=== PATIENT | male | born 1945 | race Caucasian/White ===

== ENCOUNTER 2024-05-03 14:48 | Inpatient (IN) | payer MEDICARE, OTHER, SELFPAY ==
[2024-05-03] VITALS (10 sets, daily range): BP systolic 114–147; BP diastolic 54–69; BMI 21.9; BMI 21.8
[2024-05-03 11:21] LABS: % Basophils 0.5 % (0-2); % Eosinophils 1.9 % (0-6); % Immature Granulocytes 0.5 % (0-0.5); % Lymphocytes 19.4 % (20.5-51.1); % Monocytes 7.7 % (1.7-9.3); Absolute Eosinophils 0.2 10^3/uL (0-0.7); Absolute Lymphocytes 1.7 10^3/uL (1.2-3.4); Absolute Monocytes 0.7 10^3/uL (0.1-0.6); Hematocrit 38.7 % (39.0-52.0); Hemoglobin 13.2 g/dL (13.0-18.0); Mean Corp Hgb Conc. 34.1 g/dL (33.0-37.0); Mean Corpuscular Hgb 29.7 pg (27.0-31.0); Mean Platelet Volume 10.5 fL (7.4-10.4); Nucleated Red Blood Cells % 0 % (-); Platelet Count 124 10^3/uL (130-400); Red Blood Cell Count 4.45 10^6/uL (4.70-6.10); Red Cell Dist. Width 13.9 % (11.5-14.5); White Blood Cell Count 8.6 10^3/uL (4.8-10.8)
--- NOTE | 2024-05-03 11:24 | ED.GENMED ---
History of Present Illness
General
Chief Complaint: Numbness
Time Seen by Provider: 05/03/24 10:49
History of Present Illness
History of Present Illness:
Started at 5 AM with numbness and weakness to the leg when he got up to go to the bathroom. Fine 11 PM when he went to bed. Shortly after developed pain in the leg. Symptoms are moderate in nature
Past History
Past History
ED Past Medical History: CAD, HTN, Hypercholesterolemia, NIDDM, HI (X 2) and Other (Parkinson's disease, Tremors)
ED Past Surgical History: Cardiac (CABG x 2, cardiac stent x 15, ) and Other (Stents both legs. Carotid bypass, Fem-pop bypass, )
Social History
Tobacco: Former smoker
Alcohol: None
Drug: None
Personal:
Living: with family
Employment: Retired
Family History
Family History: Other (Noncontributory)
Phy Exam
Physical Exam
Physical Exam:
GENERAL: Alert and oriented in no apparent distress
EYE: Orbits normal.
NECK: Supple
CARDIAC: Regular rate and rhythm without any obvious murmurs.
LUNGS: Clear breath sounds,normal
ABDOMEN: Soft, without focal tenderness or distention
NEUROLOGICAL: Alert and oriented , grossly non-focal
SKIN: Warm and dry, coolness to the left foot starting near the ankle.
MUSCULOSKELETAL: Cold cool left foot. No dorsalis pedis or posterior tibial pulses. Decreased sensation but able to wiggle the toes well and flex the foot. Decreased extension which is not new
PSYCH: Normal and appropriate interaction.
Course
Orders/Labs/Results
Orders:
Orders
05/03/24 10:58
IV Insert/Care/Rem.- Treatment PRN
05/03/24 11:05
PTT Urgent
Prothrombin Time Urgent
05/03/24 11:06
CT Abd Aorta Angio W/ Run Off Stat
Reason For Exam: cold left foot. include delayed/runoff
Basic Metabolic Panel Urgent
Complete Blood Count/With Diff Urgent
05/03/24 11:23
Heparin 4,000 units IV NOW STA
Nursing to Place Non Medication Order As Directed
Physician Order: PTT 6 hours after initial start of Heparin infusion
05/03/24 11:30
Heparin 03045 Units/250 ml 25,000 units in 250 ml IV PER PROTOCOL
Weight to be used for heparin protocol in kilograms (kg):: 69.2
Protocol:: Vascular Surgery
PTT Goal Range to be used:: PTT 73 to 111 seconds
Order type:: Initial
INITIAL Infusion Dose (UNITS/KG/hr) & then follow protocol:: 18 units/kg/hr
Infusion Dose in UNITS/hr & then follow protocol (UNITS/hr):: 1,200
INFUSION RATE in mL/hr & then follow protocol (mL/hr):: 12
PTT less than or equal to 64 seconds:: Notify Ordering Provider. obtain orders for rate increase &
possible bolus
PTT 64.1 to 72.9 seconds:: Increase rate by 100 units/hr (+ 1 mL/hr)
PTT 73 to 111 seconds:: Target Range. No change in rate.
PTT 111.1 to 130.9 seconds:: Decrease rate by 100 units/hr (- 1 mL/hr)
PTT 131 to 199.9 seconds:: HOLD for 1 hour. Then decrease rate by 200 units/hr (- 2 mL/hr)
PTT greater than or equal to 200 seconds:: STOP INFUSION. Notify Ordering provider to obtain further orders.
Lab follow-up:: Each change, PTT q6h until 2 consecutive are therapeutic. Then PTT
daily.
05/03/24 12:15
Electrocardiogram (*1) Stat
Reason for Study: Other
Other Reason for Exam: chest pain
EKG- Treatment ONCE
05/03/24 12:22
NORepinephrine 4 MG/250 ML [Levophed] 4 mg in 250 ml .ROUTE .STK-MED
Phenylephrine [Thang-Synephrine] 10 mg .ROUTE .STK-MED ONE
05/03/24 17:45
PTT Urgent
Abnormal Lab Results
05/03/24 05/03/24
11:05 11:06
RBC 4.45 L 10^6/uL
(4.70-6.10)
Hct 38.7 L %
(39.0-52.0)
Plt Count 124 L 10^3/uL
(130-400)
MPV 10.5 H fL
(7.4-10.4)
Absolute Monos (auto) 0.7 H 10^3/uL
(0.1-0.6)
Lymphocytes % 19.4 L %
(20.5-51.1)
PT 14.7 H Sec
(11.4-14.6)
BUN 27 H mg/dl
(9-20)
Creatinine 1.4 H mg/dL
(0.7-1.3)
Glucose 127 H mg/dl
(70-99)
05/03/24 11:06
05/03/24 11:06
Vital Signs
Initial and Last Documented VS:
Initial Vital Signs
Temp Pulse Resp BP Pulse Ox
98.3 F 64 16 114/54 98
05/03/24 10:04 05/03/24 10:04 05/03/24 10:04 05/03/24 10:04 05/03/24 10:04
Last Documented Vital Signs
Temp Pulse Resp BP Pulse Ox
98.3 F 55 10 127/66 97
05/03/24 10:04 05/03/24 11:15 05/03/24 11:15 05/03/24 11:00 05/03/24 11:15
MDM/Problems Addressed
Differential Diagnosis Includes:
Clinically arterial obstruction to the left foot. Calls placed immediately to vascular surgery. CT angio ordered. Multiple discussions with patient and family.
*Pulse Oximetry
Patient hypoxic: no
*EKG
Interpreted by ED Provider?: Yes
Interpretation: abnormal
Comparison EKG: no changes
Heart Rate: 58
Rate: bradycardiac
Rhythm: sinus
Glover: left axis deviation
Interval: normal interval
QRS Pattern: normal QRS
Ischemia: non-specific ST changes
*Machine Sweeper Brush Maker Interpretation
Rate: normal
Interpretation: normal
Heart Rate: 60
Rhythm: sinus
*Critical Care Note
Total Time (30-74mins, 75-104mins- exclusive of procedures): 40
Update Note
Update Note:
1115.... Treated with approximate time. Immediately contacted our vascular surgery upon exiting the room. Also tried to contact [place] [facility] to keep them in the loop. Heparinization per vascular surgery. Last GFR was 45 with a
creatinine 1.5. Patient states his labs were stable in December at the [facility]. Discussed with vascular surgery and agree not with waiting for his BUN/creatinine. We will give 500 of saline
ED Attending Note
-
Portions of this chart may have been created with voice recognition software.� Occasional wrong word or��sound alike� substitutions may have occurred due to the inherent limitations of voice recognition software.
Discharge Plan
Departure
Patient Disposition: Admit
Date of Disposition: 05/03/24
Time of Disposition: 12:17
Presentation/result/management discussed w/ accepting MD/DO: Vascular surgery
Discharge Problem:
Occluded left bypass graft, Ischemic left foot
Prescriptions:
No Action
atorvastatin 80 MG tablet
80 mg PO QPM
cyanocobalamin (vitamin B-12) 1,000 MCG tablet
1,000 mcg PO DAILY
citalopram 20 MG tablet
20 mg PO HS
amlodipine 10 MG tablet
10 mg PO DAILY
pantoprazole 40 MG tablet,delayed release (DR/EC)
40 mg PO DAILY
divalproex 500 MG tablet extended release 24 hr
1,000 mg PO HS
loperamide 2 MG capsule
2 mg PO Q4HPRN PRN (Reason: diarrhea)
ranolazine 500 MG tablet extended release 12 hr
500 mg PO BID
isosorbide mononitrate 30 MG tablet extended release 24 hr
30 mg PO DAILY
metformin 500 MG tablet
750 mg PO BID
trazodone 50 MG tablet
50 mg PO HS
gabapentin 300 MG capsule
300 mg PO DAILY
hydrochlorothiazide 25 MG tablet
25 mg PO DAILY
lisinopril 2.5 MG tablet
2.5 mg PO DAILY
High Potency Probiotic 1 CAP capsule
1 cap PO DAILY
Metamucil Fiber Singles 1 PACKET powder in packet
1 packet PO DAILY
ferrous sulfate 325 mg (65 mg iron) Tablet
325 mg PO DAILY
gabapentin 300 mg Capsule
600 mg PO HS
albuterol 90 mcg/actuation Aerosol
90 mcg INHALATION QIDPRN PRN (Reason: sob)
propranolol 20 mg Tablet
20 mg PO BID
apixaban 5 mg Tablet
5 mg PO BID
empagliflozin 25 mg Tablet
25 mg PO DAILY
Referrals:
Venkat Robins, [Family Provider] -
Interventions
Interventions:
*Risk Screen - Suicide Last Done: 05/03/24 10:04
*General Assessment Last Done: 05/03/24 10:04
*Neglect/Abuse Screening Last Done: 05/03/24 10:04
*ED COVID-19 Vaccine History Last Done: 05/03/24 10:49
ED- Neurological Assessment Last Done: 05/03/24 10:49
Discharge Date and Time
Print Language: PERSIAN
[2024-05-03 11:29] LABS: INR 1.17; PT 14.7 Sec (11.4-14.6)
[2024-05-03 11:30] LABS: APTT 28.4 Sec (23.4-35.0)
[2024-05-03 11:34] LABS: Blood Urea Nitrogen 27 mg/dl (9-20); Calcium 9.3 mg/dl (8.4-10.2); Carbon Dioxide 30 mmol/L (22-30); Chloride 100 mmol/L (98-107); Estimated Creatinine Clearance 43 ml/min; Glucose 127 mg/dl (70-99); Potassium 4.3 mmol/L (3.5-5.1); Sodium 140 mmol/L (135-145); eGFR 51.77
[2024-05-03] MEDS: HEPARIN 25000 UNITS/250 ML IV (11:44)
[2024-05-03] MEDS: HEPARIN 4000 UNITS IV (11:45)
--- NOTE | 2024-05-03 12:56 | HP.FOC2 ---
Focused History & Physical
Chief Complaint
HPI:
Chief Complaint: cold L leg
HPI / Indication for Planned Procedure:
78 yo M s/p multiple bilateral lower extremity procedures for PAD, presented with acute LLE pain starting at 5am when he got up to go to the bathroom. He said he had no symptoms when he went to bed last night at around 11pm. No motor dysfunction,
and has baseline numbness from neuropathy. Has had all of his prior vascular procedures done by Dr Richey at [facility]. Takes Eliquis, last dose this am. No recent history of bleeding.
Relevant Past Medical History: Coronary Artery Disease, Diabetes and Hypertension
Relevant Family History: Negative
Relevant Past Surgical History: Positive for (bilateral lower extremity stents, bilateral fem pop bypasses)
Review of Systems
Review of Pertinent Systems: All Systems Negative
Medication
See Medication form for detailed medications: Yes
Medication List (including Herbals & OTC):
amlodipine 10 mg tablet 10 mg PO DAILY Blood pressure 02/12/20
atorvastatin 80 mg tablet 80 mg PO QPM High cholesterol 02/12/20
citalopram 20 mg tablet 20 mg PO HS Depression 02/12/20
cyanocobalamin (vitamin B-12) 1,000 mcg tablet 1,000 mcg PO DAILY Supplement 02/12/20
divalproex 500 mg tablet,extended release 24 hr 1,000 mg PO HS Mental Health/Anxiety 02/12/20
loperamide 2 mg capsule 2 mg PO Q4HPRN PRN diarrhea 02/12/20
pantoprazole 40 mg tablet,delayed release 40 mg PO DAILY Gastrointestinal issue 02/12/20
ranolazine 500 mg tablet,extended release,12 hr 500 mg PO BID Heart disease/condition 02/12/20
isosorbide mononitrate 30 mg tablet,extended release 24 hr 30 mg PO DAILY Heart disease/condition 02/13/20
Lactobac no.2-Bifidobac no.1-S. thermo 112.5 billion cell capsule (High Potency Probiotic) 1 cap PO DAILY 11/26/20
gabapentin 300 mg capsule 300 mg PO DAILY 11/26/20
hydrochlorothiazide 25 mg tablet 25 mg PO DAILY 11/26/20
lisinopril 2.5 mg tablet 2.5 mg PO DAILY 11/26/20
metformin 500 mg tablet 750 mg PO BID 11/26/20
psyllium husk (aspartame) 3.4 gram oral powder packet (Metamucil Fiber Singles) 1 packet PO DAILY 11/26/20
trazodone 50 mg tablet 50 mg PO HS 11/26/20
albuterol 90 mcg/actuation aerosol inhaler 90 mcg inhalation QIDPRN PRN sob 05/03/24
apixaban 5 mg tablet 5 mg PO BID 05/03/24
empagliflozin 25 mg tablet 25 mg PO DAILY 05/03/24
ferrous sulfate 325 mg (65 mg iron) tablet 325 mg PO DAILY 05/03/24
gabapentin 300 mg capsule 600 mg PO HS 05/03/24
propranolol 20 mg tablet 20 mg PO BID 05/03/24
Medications Reviewed: Yes
Allergies and Reactions
Patient has Allergies: No
Noted Allergies and Reactions:
Allergy/AdvReac Type Severity Reaction Status Date / Time
No Known Allergies Allergy Verified 05/03/24 10:03
Pertinent Physical Exam
All Other Systems: Negative
Head/Neck: Normal
Lungs: Normal
Heart: Normal
Abdomen: Normal
Extremities: Other (pale L foot. motor in tact, decreased sensation (per patient this is baseline))
Neurological: Normal
Diagnosis / Assessment
I reviewed his CTA. He appears to have a prior long segment SFA stent on the left which is occluded. He has a fem [place] pop bypass which appears to be prosthetic and is occluded. There is reconstitution of the bk popliteal artery.
Discussed the results with him and his family. Will attempt thrombolysis catheter placement and lytic infusion over night. They understand the risks including but not limited to catastrophic bleeding, infection, vessel injury, and failure to open by
bypass resulting in further surgery or limb loss. He is anxious to proceed due to his foot pain. Heparin drip was initiated by the ED, OR aware.
Plan / Procedure
LLE thrombolysis, possible revascularization
Anesthesia/Sedation to be done by Anesthesia Provider: No
[2024-05-03 14:13] LABS: Glucose - Point of Care 96 mg/dl (70-99)
[2024-05-03] MEDS: CATHFLO/ACTIVASE 8 MG INTRAARTER (14:20)
--- NOTE | 2024-05-03 14:45 | W.IMMPOSTOP ---
Surgical Immed Post Op Note
-
Primary Surgeon:
lotto
Assisting Surgeon:
Pre-op Diagnosis:
jordane ALI
Post-op Diagnosis:
Procedure Performed:
LLE agram with lytic catheter placement
Anesthesia Type:
geta
Specimen / Cultures:
Estimated Blood Loss:
5
Complications:
difficult catheter placement 2/2 aortic calcific disease
Operative Findings: occluded bypass graft, outflow through PT
[2024-05-03] MEDS: HEPARIN 25000 UNITS/250 ML ART SHEATH (15:11)
[2024-05-03] MEDS: CATHFLO/ACTIVASE 16 MG INF CATH ×2 (15:11→19:07)
[2024-05-03] MEDS: CATHFLO/ACTIVASE 16 ML INF CATH ×2 (15:11→19:07)
--- NOTE | 2024-05-03 15:45 | PTCARENOTE ---
Assumed care of patient. Pt rec'd from laborer airport maintenance after right groin accessed w/ 6fr art sheath. Pt rec'd drowsy but easily arousable. A&Ox3. Pleasant. CHEESH-NA. Denies pain. Rec'd on 6L simple mask..sats 100%. Mask removed after 1hr to R/A. Sats
96% on R/A. S1 S2 reg w/ NSR on monitor. +RP's. Right DP and PT by doppler. Left DP and PT absent. See post angiography documentation. Lungs diminished w/ right base fine crackles. Encouraged to cough and deep breath. Abdomen round...+BS.
Temp sensing barajas draining straw colored urine. Skin intact on admission except for right groin puncture site from art sheath. 20P RAC capped. 20P RW capped. VS documented. Call hayes within reach. Family updated and at bedside. Will continue
to monitor.
[2024-05-03] MEDS: NSS 1000 INF CATH (15:54)
[2024-05-03 16:48] LABS: Hematocrit 35.6 % (39.0-52.0); Hemoglobin 12.3 g/dL (13.0-18.0)
[2024-05-03 16:55] LABS: APTT 122.7 Sec (23.4-35.0); Fibrinogen 202 MG/DL (199-459)
--- NOTE | 2024-05-03 17:19 | CON.INTV ---
Consultation
Consultation Request
Date/Time Consultation Requested: 05/03/2024 - 143
Date/Time Consultation Performed: 05/03/2024 - 150
Requesting Provider: Dr. He
Performing Provider: Dr. Townsend
Reason for Consultation: S/p LLE lysis
Medical History
-
Chief Complaint: Pain + numbness in left lower extremity
History of Present Illness:
78-year-old former tobacco smoker with a past medical history of CAD s/p coronary stents + CABG, DM type II, hypertension, history of alcohol abuse and PAD s/p lower extremity stents + bilateral fem�pop bypasses who presents with left lower
extremity pain + numbness. He awoke this morning with the symptoms. He does have some baseline numbness from neuropathy. He normally takes Eliquis with last dose on the morning of arrival. In the ER he was afebrile to 98.3 �F, pulse rate 64,
breathing at 16 breaths minute, BP 114/54 and saturating 98% on room air. Labs showed Hb 13.2, platelets 124, and creatinine 1.4. CTA abdominal aorta with runoff showed left femoral�popliteal bypass graft was occluded near its origin with [place]
SFA also occluded. Three-vessel runoff was seen to the left foot and the right femoral�popliteal bypass graft was patent. There also was a 50-75% stenosis at the origin of the SMA with mild stenosis of the origin of the celiac axis. Patient was
started on heparin in the ER and vascular surgery was consulted. He was brought to the OR for left lower extremity angiogram with lytic catheter placement. Operative findings was an occluded bypass graft with outflow through the posterior tibial
artery. There was difficult lytic catheter placement due to aortic calcified disease. EBL was 5 cc. Patient was transferred to the ICU postoperatively, and critical care services consulted for additional management/recommendations.
When I saw the patient he was resting in bed, on room air breathing comfortably saturating 98%. Heart rate 61 and BP 120/56. He says his left leg feels better, and he denies any numbness or tingling. He also denies SOB, chest pain, SHOOK, nausea,
fevers or chills. Patient's daughter, Mary, as well as son-in-law, Chris, both at bedside. All questions were answered.
PMHx: PAD, history of CA, CAD s/p coronary stents + CABG, DM type II, hypertension, former tobacco smoker, history of alcohol abuse
PSHx: Bilateral lower extremity stents, bilateral fem-pop bypasses, coronary stents, bilateral carotid bypass, CABG
Past Medical History
Past Medical History: Other (Above as per HPI)
Past Surgical History: Other (Above as per HPI)
Social History
Tobacco: Former Smoker (2-3 PPD X 50 years with cigar use as well)
Alcohol: Former (Sober X 20 years)
Drug: None
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
Family History
Family History: CAD (Father), Diabetes (Mother) and Other (Mother: History of vascular disease s/p bilateral lower extremity amputations)
Allergies / Home Medications
Allergies
Allergy/AdvReac Type Severity Reaction Status Date / Time
No Known Allergies Allergy Verified 05/03/24 10:03
Home Medications
�Medication �Instructions �Recorded �Confirmed �Last Taken �Type
amlodipine 10 mg tablet 10 mg PO DAILY Blood pressure 02/12/20 05/03/24 11/26/20 08:00 History
atorvastatin 80 mg tablet 80 mg PO QPM High cholesterol 02/12/20 05/03/24 Unknown History
citalopram 20 mg tablet 20 mg PO HS Depression 02/12/20 05/03/24 11/26/20 08:00 History
cyanocobalamin (vitamin B-12) 1,000 mcg PO DAILY Supplement 02/12/20 05/03/24 11/26/20 08:00 History
1,000 mcg tablet
divalproex 500 mg tablet,extended 1,000 mg PO HS Mental 02/12/20 05/03/24 11/26/20 08:00 History
release 24 hr Health/Anxiety
loperamide 2 mg capsule 2 mg PO Q4HPRN PRN diarrhea 02/12/20 05/03/24 Unknown History
pantoprazole 40 mg tablet,delayed 40 mg PO DAILY Gastrointestinal 02/12/20 05/03/24 11/26/20 08:00 History
release issue
ranolazine 500 mg tablet,extended 500 mg PO BID Heart 02/12/20 05/03/24 11/26/20 08:00 History
release,12 hr disease/condition
isosorbide mononitrate 30 mg 30 mg PO DAILY Heart 02/13/20 05/03/24 11/26/20 08:00 History
tablet,extended release 24 hr disease/condition
Lactobac no.2-Bifidobac no.1-S. 1 cap PO DAILY 11/26/20 05/03/24 11/26/20 08:00 History
thermo 112.5 billion cell capsule
(High Potency Probiotic)
gabapentin 300 mg capsule 300 mg PO DAILY 11/26/20 05/03/24 11/26/20 08:00 History
hydrochlorothiazide 25 mg tablet 25 mg PO DAILY 11/26/20 05/03/24 11/26/20 08:00 History
lisinopril 2.5 mg tablet 2.5 mg PO DAILY 11/26/20 05/03/24 11/26/20 08:00 History
metformin 500 mg tablet 750 mg PO BID 11/26/20 05/03/24 11/26/20 08:00 History
psyllium husk (aspartame) 3.4 gram 1 packet PO DAILY 11/26/20 05/03/24 11/26/20 08:00 History
oral powder packet (Metamucil
Fiber Singles)
trazodone 50 mg tablet 50 mg PO HS 11/26/20 05/03/24 Unknown History
albuterol 90 mcg/actuation aerosol 90 mcg inhalation QIDPRN PRN sob 05/03/24 05/03/24 Unknown History
inhaler
apixaban 5 mg tablet 5 mg PO BID 05/03/24 05/03/24 Unknown History
empagliflozin 25 mg tablet 25 mg PO DAILY 05/03/24 05/03/24 Unknown History
ferrous sulfate 325 mg (65 mg 325 mg PO DAILY 05/03/24 05/03/24 Unknown History
iron) tablet
gabapentin 300 mg capsule 600 mg PO HS 05/03/24 05/03/24 Unknown History
propranolol 20 mg tablet 20 mg PO BID 05/03/24 05/03/24 Unknown History
Review of Systems
-
History Source: Patient
All other systems: Negative unless noted
Vitals / Labs / Diagnostic Testing
Vital Signs
Temp Pulse Resp BP Pulse Ox
97.7 F 63 14 133/65 95
05/03/24 15:40 05/03/24 15:30 05/03/24 15:30 05/03/24 15:30 05/03/24 15:40
Lab Data
05/03/24 11:06
Laboratory Results
05/03/24 05/03/24 05/03/24
11:05 16:36 17:45
PT 14.7 H
INR 1.17
APTT 28.4 122.7 H Cancelled
05/03/24
20:30
PT
INR
APTT Cancelled
Diagnostic Testing:
Physical Exam
-
HEENT: Normocephalic and Anicteric
Cardiovascular: S1/S2 and Peripheral Edema (negative)
Respiratory: Wheeze (negative), Rales (negative), Rhonchi (negative) and Non-Labored Respirations
GI: Soft, Non Distended, Non Tender and Normal Bowel Sounds
Neurology: AO x 3 and Tremors (negative)
Skin: Warm and Dry
General: Respiratory Distress (negative), Comfortable, Fever (negative) and Chills (negative)
Assessment
-
Assessment: 78-year-old former tobacco smoker with a past medical history of CAD s/p coronary stents + CABG, DM type II, hypertension, history of alcohol abuse and PAD s/p lower extremity stents + bilateral fem�pop bypasses who presents with left
lower extremity pain + numbness. He awoke this morning with the symptoms. He does have some baseline numbness from neuropathy. He normally takes Eliquis with last dose on the morning of arrival. In the ER he was afebrile to 98.3 �F, pulse rate
64, breathing at 16 breaths minute, BP 114/54 and saturating 98% on room air. Labs showed Hb 13.2, platelets 124, and creatinine 1.4. CTA abdominal aorta with runoff showed left femoral�popliteal bypass graft was occluded near its origin with
[place] SFA also occluded. Three-vessel runoff was seen to the left foot and the right femoral�popliteal bypass graft was patent. There also was a 50-75% stenosis at the origin of the SMA with mild stenosis of the origin of the celiac axis.
Patient was started on heparin in the ER and vascular surgery was consulted. He was brought to the OR for left lower extremity angiogram with lytic catheter placement. Operative findings was an occluded bypass graft with outflow through the
posterior tibial artery. There was difficult lytic catheter placement due to aortic calcified disease. EBL was 5 cc. Patient was transferred to the ICU postoperatively, and critical care services consulted for additional
management/recommendations.
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
Impression:
#Left femoral�popliteal bypass graft occlusion with acute limb ischemia s/p LLE angiogram with lytic catheter placement (POD#0)
#Hx of PAD s/p lower extremity stents + bilateral fem-pop bypass grafts
#Anemia (last Hb 14 in March 2023)
#CAD s/p coronary stents x 15+ CABG
#Thrombocytopenia (appears chronic as last platelet count 121 in March 2023, and was 133 in May 2022)
#CKD (baseline Cr 1.4)
#Former tobacco use disorder with >[id number] history, quit 6-1/2 years ago (per patient, but he was not exactly sure when he quit, but it was within 6-8 years ago)
#History of alcohol abuse (sober for >20 years)
#DM type II
Plan:
Postoperative surgical intensive care unit monitoring
Continue with LLE tPA infusion as per vascular surgery
Supplemental oxygen as needed to maintain SpO2 >90-94%
prn nebulized bronchodilators - pt not currently bronchospastic
Incentive spirometry encouraged 10x per hour for at least 4 hrs a day
Aspiration precautions
Pain control
Neuro and vascular checks per protocol
Maintain MAP>65
Replete electrolytes with K>4, Mg>2
Maintain euglycemia with goal BG 140-180
Vascular surgery following-correspondence and operative notes reviewed
Transfuse blood products as needed to keep Hb>7g/dL, and plt>50k (given post-operative status)
DVT prophylaxis
Early nutrition
Early mobilization
Patient qualifies for annual LDCT chest given he quit smoking within the last 15 years and has a >59-bkdb-wmon history. I will arrange for outpatient office follow-up to discuss this and also to obtain full PFTs. Of note, he denies SOB or dyspnea
on exertion.
Critical care statement: A total of 42 minutes of critical care time was provided for this patient today. This includes management of unstable vital signs, evaluation of the patient at bedside, reviewing the patient's pertinent medical records
including radiographs, microbiology, laboratory evaluations, and discussion with primary team, consultants, pharmacy, nutrition, physical therapy, case management, charge nurse, critical care nursing, and respiratory therapy.
Data:
CTA Abd aorta with runoff 05/03/2024:
1. Left femoral to popliteal bypass graft is occluded near its origin. [place] SFA is also occluded. There is weak reconstitution of the popliteal artery via collaterals from the [place]. Three-vessel runoff to the left foot.
2. Right femoral to popliteal bypass graft is patent..
3. 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 Mild stenosis near the origin of the celiac axis.
4. Mild prostatic enlargement.
--- NOTE | 2024-05-03 17:40 | PTCARENOTE ---
Dr.Lotto cowan texted and made aware of pt's change in pulses. Able to obtain left post tibial by doppler...color improved to pale pink...skin is warm and sensation is improved. Will continue to monitor closely.
[2024-05-03 21:22] LABS: Hematocrit 35.3 % (39.0-52.0)
[2024-05-03 21:26] LABS: APTT 38.8 Sec (23.4-35.0); Fibrinogen 178 MG/DL (199-459)
[2024-05-03] MEDS: NEURONTIN 600 MG PO (21:46)
[2024-05-03] MEDS: DESYREL 50 MG PO (21:46)
[2024-05-03] MEDS: LIPITOR 80 MG PO (21:46)
[2024-05-03] MEDS: DEPAKOTE ER (24 HR RELEASE) 1000 MG PO (21:46)
[2024-05-03] MEDS: CELEXA 20 MG PO (21:46)
--- NOTE | 2024-05-03 21:58 | PTCARENOTE ---
Addendum entered by Roberta Bo RN 05/04/24 02:35:
Verified heparin orders with Dr. He, only heparin via sheath to be administered.
Original Note:
Pt received at 19:00, son present at bedside. Ox3, LE strength not testable d/t limb restriction bilaterally. B/L LE equally pink and warm. Able to move feet equally bilaterally. R DP/PT and L PT present with doppler, R DP absent. SR, HR 60s. RA
breath sounds diminished. [place] in place, cloudy straw colored urine, adequate output. R sheath site CDI.
Dr. He made aware of 21:00 lab results, alteplase dose decreased from 1mg/hr (4ml/hr) to 0.5mg/hr (2ml/hr) as ordered. Heparin continues via sheath as ordered.
[2024-05-04] VITALS (66 sets, daily range): BP systolic 41–140; BP diastolic 31–100; BMI 21.9
[2024-05-04] MEDS: CATHFLO/ACTIVASE 16 MG INF CATH ×3 (01:27→14:43)
[2024-05-04] MEDS: CATHFLO/ACTIVASE 16 ML INF CATH ×3 (01:27→14:43)
[2024-05-04 05:10] LABS: APTT 37.6 Sec (23.4-35.0)
[2024-05-04 05:11] LABS: Fibrinogen 232 MG/DL (199-459); INR 1.13; PT 14.4 Sec (11.4-14.6)
[2024-05-04 05:13] LABS: Hematocrit 33.1 % (39.0-52.0); Hemoglobin 11.4 g/dL (13.0-18.0); Mean Corp Hgb Conc. 34.4 g/dL (33.0-37.0); Mean Corpuscular Hgb 29.5 pg (27.0-31.0); Mean Corpuscular Volume 85.5 fL (80.0-94.0); Platelet Count 107 10^3/uL (130-400); Red Blood Cell Count 3.87 10^6/uL (4.70-6.10); White Blood Cell Count 9.1 10^3/uL (4.8-10.8)
[2024-05-04 05:23] LABS: ALT (SGPT) 12 U/L (0-50); AST (SGOT) 26 U/L (17-59); Albumin 3.3 g/dl (3.5-5.0); Alkaline Phosphatase 48 U/L (38-126); Blood Urea Nitrogen 23 mg/dl (9-20); Calcium 8.5 mg/dl (8.4-10.2); Carbon Dioxide 27 mmol/L (22-30); Chloride 103 mmol/L (98-107); Estimated Creatinine Clearance 50 ml/min; Glucose 82 mg/dl (70-99); Magnesium 1.6 mg/dl (1.6-2.3); Phosphorus 4.3 mg/dl (2.5-4.5); Potassium 4.2 mmol/L (3.5-5.1); Sodium 140 mmol/L (135-145); Total Bilirubin 0.5 mg/dl (0.2-1.3); Total Protein 5.6 g/dl (6.3-8.2); eGFR > 60.00
[2024-05-04] MEDS: CATHFLO/ACTIVASE INF CATH ×2 (05:40)
--- NOTE | 2024-05-04 06:08 | PTCARENOTE ---
Pt with small amount of oozing at catheter site noted, marked on gauze. No further drainage noted. Otherwise assessment unchanged.
--- NOTE | 2024-05-04 07:30 | PTCARENOTE ---
Received patient from scene shifter. handoff completed at bedside with scene shifter RN. Assessed doppler pulses and right groin site. Some oozing noted from dressing, but dressing is still intact. Patient is AAOx3, sensation has improved in left
foot. Due to femoral sheath remaining in and transduced, not testing strength of legs. Patient is on room air, 94%. Has desaturated into low 80s when sleeping. Lungs clear to auscultation. Patient is sinus rhythm in 60s on monitor. no edema.
Patient is written for clear liquid diet, has barajas catheter. Dr. Steward in with vascular team, will plan on taking patient back to OR this afternoon. Will make patient NPO. Cathflow and Heparin gtts verified. will review orders.
--- NOTE | 2024-05-04 07:55 | W.PN.INTV ---
Today's Communication / Plan
Recommendations
Neurovascular checks
Transfuse as needed
OR-left lower extremity arteriogram and possible lytic catheter removal
Eventual outpatient pulmonary follow-up
Assessment
-
Assessment: 78-year-old former tobacco smoker with a past medical history of CAD s/p coronary stents + CABG, DM type II, hypertension, history of alcohol abuse and PAD s/p lower extremity stents + bilateral fem�pop bypasses who presents with left
lower extremity pain + numbness. He awoke this morning with the symptoms. He does have some baseline numbness from neuropathy. He normally takes Eliquis with last dose on the morning of arrival. In the ER he was afebrile to 98.3 �F, pulse rate
64, breathing at 16 breaths minute, BP 114/54 and saturating 98% on room air. Labs showed Hb 13.2, platelets 124, and creatinine 1.4. CTA abdominal aorta with runoff showed left femoral�popliteal bypass graft was occluded near its origin with
[place] SFA also occluded. Three-vessel runoff was seen to the left foot and the right femoral�popliteal bypass graft was patent. There also was a 50-75% stenosis at the origin of the SMA with mild stenosis of the origin of the celiac axis.
Patient was started on heparin in the ER and vascular surgery was consulted. He was brought to the OR for left lower extremity angiogram with lytic catheter placement. Operative findings was an occluded bypass graft with outflow through the
posterior tibial artery. There was difficult lytic catheter placement due to aortic calcified disease. EBL was 5 cc. Patient was transferred to the ICU postoperatively, and critical care services consulted for additional
management/recommendations.
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
Impression:
#Left femoral�popliteal bypass graft occlusion with acute limb ischemia s/p LLE angiogram with lytic catheter placement (POD#0)
#Hx of PAD s/p lower extremity stents + bilateral fem-pop bypass grafts
#Anemia (last Hb 14 in March 2023)
#CAD s/p coronary stents x 15+ CABG
#Thrombocytopenia (appears chronic as last platelet count 121 in March 2023, and was 133 in May 2022)
#CKD (baseline Cr 1.4)
#Former tobacco use disorder with >360-pydx-jhhl history, quit 6-1/2 years ago (per patient, but he was not exactly sure when he quit, but it was within 6-8 years ago)
#History of alcohol abuse (sober for >20 years)
#DM type II
Plan:
Critically ill with limb threatening ischemia
Supplemental oxygen as needed
Nebulizers if needed-currently not bronchospastic
Incentive spirometry
Aspiration precautions
Neuro and vascular checks per protocol
Maintain MAP>65
Replete electrolytes with K>4, Mg>2
Maintain euglycemia with goal BG 140-180
Vascular surgery following-correspondence and operative notes reviewed
Transfuse blood products as needed to keep Hb>7g/dL, and plt>50k (given post-operative status)
Return to operating room for left lower extremity arteriogram and possible lytic catheter removal today
DVT prophylaxis
Early nutrition
Early mobilization
Outpatient pulmonary [id number] qualifies for annual LDCT chest given he quit smoking within the last 15 years and has a >08-pvur-bjat history. I will arrange for outpatient office follow-up to discuss this and also to obtain full PFTs.
Critical care statement: A total of 39 minutes of critical care time was provided for this patient today. This includes management of unstable vital signs, evaluation of the patient at bedside, reviewing the patient's pertinent medical records
including radiographs, pressor management, microbiology, laboratory evaluations, and discussion with primary team, consultants, pharmacy, nutrition, physical therapy, case management, charge nurse, critical care nursing, and respiratory therapy.
Data:
CTA Abd aorta with runoff 05/03/2024:
1. Left femoral to popliteal bypass graft is occluded near its origin. [place] SFA is also occluded. There is weak reconstitution of the popliteal artery via collaterals from the profunda. Three-vessel runoff to the left foot.
2. Right femoral to popliteal bypass graft is patent..
3. 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 Mild stenosis near the origin of the celiac axis.
4. Mild prostatic enlargement.
Subjective Dataa
Subjective Data
Date of Service:
Date of Service: May 04, 2024
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
Subjective:
Slept well, no complaints of shortness of breath, chest pain or abdominal pain
Review of Systems
General: Other (Per HPI)
Objective Data
Data Reviewed
Vital Signs / I&O / Oxygen:
Vital Signs
Temp Pulse Resp BP Pulse Ox
97.7 F 60 14 100/45 95
05/03/24 15:40 05/04/24 05:45 05/04/24 05:45 05/04/24 05:45 05/04/24 05:15
Intake and Output
05/03/24 05/04/24 05/05/24
06:59 06:59 06:59
Intake Total 1102 / 1155 53 / 53
Output Total 1904 125 / 125
Balance -803 / -875 -72 / -72
SaO2 95
Physical Exam
General: Respiratory Distress (n) and Comfortable
HEENT: Normocephalic and Moist Mucous Membranes
Cardiovascular: Regular Rhythm
Respiratory: Wheeze (n), Crackles (n), Rhonchi (n), Non-Labored Respirations, Accessory Resp Muscle Use (n) and Stridor (n)
GI: Soft, Non Distended and Non Tender
Neurology: Awake, Alert and No Motor Deficits
Skin: Good Color, Cyanosis (n), Jaundice (n) and Rash (n)
Labs/Micro/Reports
Lab Data
05/04/24 04:29
Laboratory Results
05/03/24 05/03/24 05/03/24
11:05 16:36 17:45
PT 14.7 H
INR 1.17
APTT 28.4 122.7 H Cancelled
05/03/24 05/03/24 05/04/24
20:30 21:09 04:29
PT 14.4
INR 1.13
APTT Cancelled 38.8 H 37.6 H
--- NOTE | 2024-05-04 08:25 | W.PN.VS ---
Addendum entered and electronically signed by Darien Steward MD 05/04/24 15:16:
This is a late entry. Patient was seen and examined earlier this a.m. with DANNA Mullins and DANNA Medley. Agree with findings as noted below. Patient notes improvement in his preoperative pain. No significant pain in the left foot now. Abdomen soft,
nondistended, nontender. Neurologically no focal deficits. Right groin puncture site flat. No hematoma. Left foot is warm. Dopplerable PT signal. Compartments all soft. Plan/as discussed and noted below. Planned lysis check/return to the OR
today.
Original Note:
Today's Communication / Plan
-
Patient seen and examined at bedside with Dr. Darien Steward, below plan reviewed with attending.
Assessment/Plan
-
Assessment: 78-year-old male POD #1 LLE agram with lytic catheter placement
Plan:
Return to the OR for left lower extremity arteriogram and possible lytic catheter removal today
N.p.o.
Continue neurovascular and neurological checks
Continue serial H&H and coag blood work until sheath removal
Subjective Data
-
Date of Service: May 04, 2024
Patient seen and examined at bedside, offers no complaints. Reports vast improvement in left lower extremity pain. Denies nausea, vomiting, fever, and chills.
Objective Data
-
Vital Signs
Temp Pulse Resp BP Pulse Ox
97.7 F 60 14 100/45 95
05/03/24 15:40 05/04/24 05:45 05/04/24 05:45 05/04/24 05:45 05/04/24 05:15
Intake and Output
05/03/24 05/04/24 05/05/24
06:59 06:59 06:59
Intake Total 1102 / 1155 106 / 106
Output Total 1904 / 2029 175 / 175
Balance -803 / -875 -69 / -69
Intake:
Oral fluids 240 / 240
IV fluids (Total) 862 / 915 106 / 106
Alteplase via art sheath 46 / 48 4 / 4
HEPARIN 13350 UNITS/250 ML 25, 80 / 85 10 / 10
000 units In 250 ml @ 500 UNITS
/HR 5 mls/hr ART SHEATH .Q24H
ALBERTINA Rx#:[id number]
Nss 1,000 ml @ 46 mls/hr INF 736 / 782 92 / 92
CATH .[id number] ALBERTINA Rx#:[id number]
Output:
Urine, Escamilla 1905 / 2029 175 / 175
Lab Results
05/04/24 04:29
Calcium 8.5 mg/dl (8.4-10.2) 05/04/24 04:29
Phosphorus 4.3 mg/dl (2.5-4.5) 05/04/24 04:29
Magnesium 1.6 mg/dl (1.6-2.3) 05/04/24 04:29
Total Bilirubin 0.5 mg/dl (0.2-1.3) 05/04/24 04:29
AST 26 U/L (17-59) 05/04/24 04:29
ALT 12 U/L (0-50) 05/04/24 04:29
Alkaline Phosphatase 48 U/L (38-126) 05/04/24 04:29
Total Protein 5.6 g/dl (6.3-8.2) L 05/04/24 04:29
Albumin 3.3 g/dl (3.5-5.0) L 05/04/24 04:29
Physical Exam
-
AAOx3, no apparent distress
No tachycardia
No dyspnea on room air
Abdomen flat, nontender, nondistended
Right groin puncture site dry and intact, scant area of drainage noted at gauze but dry and no evidence of active bleeding, no evidence of hematoma, all surrounding compartments soft
Bilateral feet warm, bilateral PT pulse by Doppler
[2024-05-04] MEDS: VISBIOME 1 CAP PO (08:51)
[2024-05-04] MEDS: PROTONIX 40 MG PO (08:51)
[2024-05-04] MEDS: ORETIC 25 MG PO (08:52)
[2024-05-04] MEDS: NEURONTIN 300 MG PO (08:52)
[2024-05-04] MEDS: RANEXA EXTENDED RELEASE 500 MG PO (08:52)
[2024-05-04] MEDS: INDERAL 20 MG PO (08:52)
[2024-05-04] MEDS: IMDUR (EXTENDED RELEASE) 30 MG PO (08:52)
[2024-05-04] MEDS: NORVASC 10 MG PO (08:52)
[2024-05-04] MEDS: FEOSOL 325 MG PO (08:53)
[2024-05-04] MEDS: VITAMIN B-12 1000 MCG PO (08:53)
[2024-05-04 09:06] LABS: APTT 35.6 Sec (23.4-35.0); Fibrinogen 214 MG/DL (199-459); INR 1.16; PT 14.7 Sec (11.4-14.6)
[2024-05-04 09:08] LABS: Hemoglobin 11.3 g/dL (13.0-18.0); Platelet Count 98 10^3/uL (130-400)
--- NOTE | 2024-05-04 10:24 | W.PN.ANS.POP ---
Anesthesia Post Operative
- Anesthesia Post Op Note
Vital Signs Stable-See Nursing Note: Yes
Airway Patent: Yes
Adequate Pain Control: Yes
Change in Mental Status: No
Current Postoperative Nausea & Vomiting: No
Anesthesia Complications: No
General Anesthetic Recall: No
Unplanned Admission: No
Post Op Hydration Adequate: Yes
--- NOTE | 2024-05-04 11:38 | PTCARENOTE ---
Patient has left DP by doppler, notified vascular. awaiting time for OR.
[2024-05-04] MEDS: NSS 1000 INF CATH (11:55)
--- NOTE | 2024-05-04 12:36 | CM ---
Reviewed the chart notes and spoke with the patient at the bedside. OR today for left lower extremity arteriogram and possible lytic catheter removal. The patient resides with his daughter and son-in-law in a two story home with no steps to
enter. The patient reports only DME is bilateral leg braces. The patient has hd [facility] in the past, but no SNF. The patient confirmed his pharmacy of choice is the [facility]. continues to be available to
patient/family and is monitoring medical plan for needs at discharge.
Plan: Discharge plans will depend on the patient's progress.
[2024-05-04 14:56] LABS: Platelet Count 99 10^3/uL (130-400)
[2024-05-04 15:08] LABS: INR 1.13; PT 14.3 Sec (11.4-14.6)
[2024-05-04 15:09] LABS: APTT 34.4 Sec (23.4-35.0); Fibrinogen 235 MG/DL (199-459)
--- NOTE | 2024-05-04 15:16 | W.SUR.PREOP ---
Pre-Operative Surgical Note
-
I have examined this patient prior to the performance of the scheduled procedure.
The patient's condition is unchanged from the time of the current History and
Physical and the patient is able to undergo the scheduled procedure.
--- NOTE | 2024-05-04 16:24 | W.SUR.POST ---
Surgical Immediate Post Op
Note
Pre Op Diagnosis: Left lower extremity acute limb threatening ischemia
Post Op Diagnosis: Left lower extremity acute limb threatening ischemia
Procedure Performed: Left lower extremity arteriogram, removal of TPA sheath, left bare metal stent across bypass anastomosis into popliteal artery
Primary Surgeon: Darien Steward MD
Secondary Surgeons: N/A
Anesthesia: MAC
Estimated Blood Loss: 2 ml
Fluids: See anesthesia flowsheet
Drains/Shunts: N/A
Specimens/Cultures: None
Doppler/Duplex/Angio (Y/N): Y
Complications: None
Operative Findings: Left PT doppler signal
--- NOTE | 2024-05-04 16:45 | PTCARENOTE ---
Received patient back. LLE arteriogram completed with angioplasty and stenting of popliteal artery. Sheath removed at 1627 and gauze and tegederm placed to right groin site. Dressing is clean dry intact. EBL was 2ml. Patient to lay flat for 2
hours, may sit up to 30% 2hours post sheath removal. placed patient on 2L nasal cannula, patient continues to have period of apnea.
[2024-05-04] MEDS: HEPARIN 25000 UNITS/250 ML ART SHEATH (16:59)
--- NOTE | 2024-05-04 17:07 | OR.RPT ---
Operative Report
Operative Report
PROCEDURE DATE: 05/04/2024
Preoperative diagnosis:
1. Acute limb ischemia with occluded left lower extremity bypass graft.
2. Ongoing catheter directed thrombolysis.
Postoperative diagnosis: Same
Procedure:
1. Left lower extremity arteriogram with 6 Nigerien up and over sheath placement left common femoral artery via right common femoral artery existing access.
2. Placement of self-expanding 6 mm stent from left above-knee popliteal artery extending back into existing bypass graft across the anastomosis (NGenTec Zilver PTX 6 mm x 14 cm).
3. Right femoral angiogram.
4. Supervision and interpretation.
Surgeon: Bin
Flame Degreaser: None
Complications: None
Anesthesia: Local, sedation
Fluoroscopy:
11 min
52 mGy
13.64 Gy.cm2
Indications for procedure:
Ongoing catheter directed thrombolysis. Difficulty with up and over access noted on initial angiogram. Lytic catheter sitting in bypass graft, but no up and over sheath (short sheath right common femoral). Risk/benefits/alternatives of repeat
angiography all fully discussed with patient. He understood all wish to proceed.
Description of procedure:
Patient was identified, brought to the operating room. Placed on the table in the supine position. After the adequate administration of anesthesia, the patient was prepped and draped in the standard surgical fashion. A standard preoperative
timeout was undertaken and everybody was in agreement with the plan.
I removed the lytic catheter over a Storq wire. I then passed a glide catheter over the Storq wire. I passed it into the distal bypass graft and then remove my wire so that I could image. Angiography of the left lower extremity was performed.
This demonstrated patent left lower extremity bypass graft. In the very distal aspect just proximal to the distal anastomosis there may have been a small amount of residual thrombus. In addition there was a severe luminal irregularity/stenosis at
the distal anastomosis. Then in the popliteal artery above the knee just distal to the bypass there appeared to be either plaque or residual mild thrombus but there was severe significant stenosis throughout that segment of the artery. Runoff
consisted of a two-vessel peroneal and posterior tibial artery runoff. The anterior tibial artery was mostly chronically occluded and with severe stenosis, and very poor distal filling onto the foot anyway. At this point I felt like I would need
up and over sheath access. Therefore I maintained wire access with a Storq wire in the bypass graft. I then exchanged my short 6 Nigerien sheath out for an up and over 6 Nigerien sheath. I was then able to get up and over sheath access into the left
common femoral artery. Next, using a flopping of hydrophilic wire and a glide catheter under roadmap assisted guidance I was able to traverse the area of stenosis at the anastomosis distally of the bypass graft. I was able to pass my wire into the
below-knee popliteal artery, and then guided intentionally into the anterior tibial artery. I was able to pass my wire all the way down to the distal calf and the anterior tibial artery. I then exchanged for a Storq wire. Given the severe
stenosis/irregularity in the distal anastomosis of the bypass graft, and the potential residual thrombus versus plaque and stenosis in the more distal above-knee popliteal artery, I felt that this needed to be stented but would favor attempted
mechanical thrombectomy first. I therefore then brought an AngioJet catheter onto the field. However our AngioJet mechanism was unable to read the catheters and was not working. Therefore I had to abandon this. At this point I felt like I could
primarily stent this area and this would trap any thrombus if there was residual thrombus rather than plaque. Initially I favored using a covered stent. However my concern with a covered stent was the relatively limited runoff (peroneal and
posterior tibial runoff, but the peroneal artery was relatively diseased and gave not great runoff distally). Therefore I felt that it may not do as well. And given that the stent would be confined to the above-knee segment I thought it reasonable
to use a self-expanding stent. Therefore I then used a [place] Zilver PTX 6 mm x 14 cm stent that extended and encompassed the above-knee popliteal artery stenosis well into the bypass graft. This was deployed in the standard fashion. I then post
angioplastied this with a 5 mm angioplasty balloon. Completion angiogram now demonstrated excellent result. The popliteal artery residual stenosis was completely resolved now. The anastomosis still demonstrated slight luminal irregularity.
Therefore I now used a 6 mm angioplasty balloon. This demonstrated significant improvement. At this point is very satisfied. I felt that there is nothing else to render endovascularly. I confirmed patent flow through the runoff. At this point I
withdrew my sheath to the left common iliac artery. Iliac angiography demonstrated no evidence of inflow stenosis. I then withdrew my sheath to the left external iliac artery. This demonstrated a small left external iliac artery (diffusely
relatively stenotic) and runoff directly into a bypass graft that was stented into the common femoral. At this point I felt that I would not want to use a closure device given the risk of injury or resulting in stenosis of the relatively small
vessel (I felt the vessel was too small to use a closure device safely). Therefore the wires and catheters were withdrawn and manual pressure was applied to the puncture site. I did give the patient 5000 units of intravenous heparin upon
initiation of the case, and I did give protamine 30 mg at this point. My concern was that the puncture site was slightly high given the stent extending into the common femoral artery (it had to be high therefore). However manual pressure was
carefully applied and the patient's habitus allowed as such. Hemostasis was fully achieved. Hemodynamic stability was noted. The patient tolerated the procedure well. He had an excellent dopplerable PT signal upon completion.
[2024-05-04] MEDS: NSS 1000 IV (17:30)
[2024-05-04] MEDS: DILAUDID 0.5 MG IV (17:51)
[2024-05-04 17:55] LABS: Glucose - Point of Care 166 mg/dl (70-99)
[2024-05-04] MEDS: HEPARIN 25000 UNITS/250 ML IV (17:55)
[2024-05-04] MEDS: LIPITOR 80 MG PO (18:10)
[2024-05-04] MEDS: LOW STRENGTH ASPIRIN 81 MG PO (18:10)
[2024-05-04] MEDS: ZOFRAN 4 MG IV (18:54)
[2024-05-04] MEDS: COMPAZINE 10 MG IV (19:57)
[2024-05-04] MEDS: RANEXA EXTENDED RELEASE PO (21:29)
[2024-05-04] MEDS: INDERAL PO (21:29)
[2024-05-04] MEDS: LR 500 IV ×2 (21:47→23:27)
[2024-05-04 23:11] LABS: Hematocrit 28.1 % (39.0-52.0); Hemoglobin 9.2 g/dL (13.0-18.0)
[2024-05-04 23:33] LABS: APTT > 200.0 Sec (23.4-35.0)
[2024-05-04 23:41] LABS: Glucose - Point of Care 156 mg/dl (70-99)
[2024-05-04 23:52] LABS: B.E. -12.1 mmol/L; HCO3 16.3 mmol/L (21-28); O2 Saturation % 98.3 % (94-98); PCO2 48 mmHg (35-48); PO2 102 mmHg (83-108)
[2024-05-04 23:53] LABS: O2 Therapy 60
[2024-05-04 23:56] LABS: pH 7.14 (7.35-7.45)
[2024-05-05] VITALS (26 sets, daily range): BP systolic 38–102; BP diastolic 15–78
[2024-05-05 00:17] LABS: Troponin I < 0.012 ng/ml
--- NOTE | 2024-05-05 00:19 | W.PN.ANESINT ---
Anesthesia Intubation Note
- Intubation Note
Intubation Note:
Diagnosis: acute respiratory failure
Blade: mac 4
Tube Size: 8.0
Depth: 23cm
Side Taped: right
Drugs Used: none
Grade View: 1
EtCO2 Present: yes
Atraumatic: yes
Attempts: 1
Insertion Start and Stop Time: 00:02-00:10
SaO2 Pre: no reading
SaO2 Post: no reading
Glidescope Used: yes
Other Airway Adjustments:
Pre-Oxygenated: yes
Portable Chest X-Ray: pending
RSI:
Suctioned:
Bilateral Breath Sounds Confirmed: yes
Vent Settings:
Settings per __x_Attending Physician
[2024-05-05 00:20] LABS: Blood Urea Nitrogen 23 mg/dl (9-20); Calcium 7.9 mg/dl (8.4-10.2); Carbon Dioxide 18 mmol/L (22-30); Chloride 103 mmol/L (98-107); Estimated Creatinine Clearance 34 ml/min; Glucose 154 mg/dl (70-99); Potassium 5.4 mmol/L (3.5-5.1); Sodium 138 mmol/L (135-145); eGFR 38.29
--- NOTE | 2024-05-05 00:23 | W.PN.UPDATE ---
Update Note
Progress Note Update
2140 Notified by bedside nurse that patient is hypotensive = 500ml of Lactate ringer order�
2235 Blood pressure unresponsive to fluid bolus, HILLARY ordered, bedside nurses update Dr. Escamilla. �Plan philip �
2304 Hgb is 9.2�
2325 Discussed the case with Dr. Perez. �Recommendation: Addition fluid bolus, CTA abdominal\\ pelvis for retroperitoneal bleed, Heparin drip stopped, 1 unit of blood ordered, Troponin sent, EKG done. Right pelvis noted to becoming firmer on
assessment.�
2345 Hemodynamics declining levophed added.�
2355 Patient becoming minimally responsive; decision made to intubated patient.�
0017 2nd unit of blood ordered�
0030 Repeat EKG preformed; concern for STEMI, Dr. Hicks updated and coming in. �
0040 Patient now stable enough to transferred to CT. If hemodynamics declined vasopressin added for transport. Family updated and on their way in. Updated Dr. Escamilla and discussed protamine. OK to hold till until scan done.�
[address] Dr. Escamilla update and on his way in.�
0115 Arrived back to ICU, protamine ordered�
0158 3rd unit of blood ordered�
0214 Patient andrey down into the 30s (Atropine and Epinephrine drip) ordered. �
0300 Patient transferred to the OR
0430 Patient arrived back to the ICU from OR. Continued on maximal support and with marginal blood pressure.
0440 Patient hemodynamics declining, family update, and discussed DNR status. Family not willing to make a decision at this time.
0445 Family at bedside with patient.
0450 Patient's Maps in the 20;s CPR started.
0454 Family decide to stop resuscitation. Passed 454
[2024-05-05] MEDS: PITRESSIN 100 IV (00:40)
[2024-05-05] MEDS: CALCIUM CHLORIDE 10% SYRINGE 60 MG IV (00:45)
--- NOTE | 2024-05-05 01:37 | W.PN.CD ---
Today's Communication / Plan
-
Consult dictated
Once hemostasis is assured at the bleeding site we can consider offering catheterization and possible PCI.
- This will require a discussion with vascular surgery and interventional cardiology
Arterial access to visualize bypass grafts and [facility] coronaries will be a challenge
Interventional cardiology is aware and await control of bleeding
I informed family (a daughter and son in law) that with 2 simultaneous life-threatening conditions occurring simultaneously that the patient faced a very high mortality rate within the next several hours/days
Impression / Plan
-
Shock from acute bleeding and likely inferior STEMI
Acute bleed in the groin, Dr. Escamilla present and discussing with family
Inferior STEMI pattern on EKG
Know CAD, remote CABG, many coronary stents, last stents were after CABG, family thinks last coronary stents more than 5 yrs ago
PAD
CKD
Remote ETOH
DM, type II
Chronic Eliquis use, family uncertain of indication
Physical Exam
Vital Signs/Labs
Vital Signs
Temp Pulse Resp BP Pulse Ox
96.3 F L 75 20 47/37 96
05/05/24 01:25 05/05/24 01:25 05/05/24 01:25 05/05/24 01:25 05/04/24 18:00
05/03/24 05/04/24 05/05/24
06:59 06:59 06:59
Actual Weight 69.2 kg
PT 14.3 Sec (11.4-14.6) 05/04/24 14:38
INR 1.13 05/04/24 14:38
APTT > 200.0 Sec (23.4-35.0) H* 05/04/24 23:04
Magnesium 2.0 mg/dl (1.6-2.3) 05/04/24 23:43
LAB Results
05/04/24
23:43
Troponin I < 0.012
Data Reviewed
-
Date of Service: May 05, 2024
--- NOTE | 2024-05-05 02:06 | W.PN.UPDATE ---
Update Note
Progress Note Update
Contacted by nurse for ongoing hypotension
Not responding to fluid boluses
Started on pressors
CTA A/P obtained. Shows active extravasation from the right distal EIA with a large right RP hematoma
Abnormal EKG
Patient intubated
Discussed options with family. OR for intervention vs no surgery. Explained that he is at very high risk of with/without surgical intervention but only way to stop the active bleeding would be with surgery. They have opted to proceed with
surgery.
[2024-05-05] MEDS: PROTAMINE 5 MG IV (02:13)
[2024-05-05] MEDS: ATROPINE 0.1 MG/ML SYRINGE 1 MG IV (02:15)
[2024-05-05] MEDS: ADRENALIN 250 IV (02:20)
--- NOTE | 2024-05-05 04:33 | OR.RPT ---
Operative Report
Operative Report
Date of Operation: 05/05/2024
Pre Op Diagnosis:
1.) right retroperitoneal hemorrhage
2.) extravasation from distal right external iliac artery
Post Op Diagnosis:
1.) right retroperitoneal hemorrhage
2.) extravasation from distal right external iliac artery
Procedure:
1.) Cutdown and exposure of right lower extremity bypass in the proximal right thigh for endovascular access
2.) Diagnostic aortoiliac arteriogram
3.) Balloon angioplasty and stenting of right external iliac artery (overlapping Corder VBX stents 7 mm x 59 mm (x2))
Surgeon: Boni Escamilla III, MD
Anesthesia: General
Fluoroscopy:
5.1 min
106 mGy
54.33 Gy.cm2
Complications: None
Estimated Blood Loss: 20 cc
History and Indications for Procedure: Critically ill 78-year-old male taken emergently to the operating room for life-threatening right retroperitoneal hemorrhage.
Procedure in Detail: Augustin Oneill was correctly identified and placed supine on the operating table. After positioning on the operating table the patient was found to have no pulse and CPR/ACLS protocol was initiated. ROSC was achieved and we
moved forward with the procedure. After adequate induction of anesthesia the right groin and thigh were prepped and draped in the usual sterile fashion. A timeout was performed with the nursing and anesthesia staff confirming the patient's identity
as well as the nature and laterality of the procedure.
An incision was made over the proximal medial thigh. Electrocautery and sharp dissection were used to expose the vein graft. Proximal distal control was obtained with vessel loops. I punctured the bypass under direct visualization with a
micropuncture needle in a retrograde fashion. I upsized to a 5 [place] sheath. The wire was advanced into the distal abdominal aorta. I performed a diagnostic retrograde aortoiliac arteriogram from the 5 [place] sheath. No active extravasation was
identified. The common iliac and external iliac arteries were patent. Due to the life-threatening nature of the patient's hemorrhage and active extravasation seen on CTA I proceeded with covered stent placement throughout the external iliac
artery. I upsized to a 6 [place] sheath quickly. The iliac bifurcation and origin of the external iliac artery was marked on the screen. The location of the previous access site based on my review of the CT angiogram and prior arteriograms was
marked. I then placed 2 overlapping 7 mm x 59 mm Corder VBX stents across the entire length of the right external iliac artery. Each stent was positioned in the desired location and deployed by inflating the balloon to nominal pressure.
Subsequent arteriogram demonstrated widely patent right external iliac artery stents with no active extravasation identified.
Satisfied with this result I concluded the procedure. The wire and 6 Fr sheath were removed from the vein graft. The proximal and distal vessel loops were secured. The puncture site was repaired with 6-0 Prolene suture. The vessel loops were
released. There was an easily palpable pulse in the bypass. Hemostasis was achieved at the puncture site. The wound was irrigated with saline solution. The wound was then closed in layers.
The patient tolerated the procedure and was taken back to the intensive care unit in critical condition.
Attestation: I was present and responsible for the entire procedure.
Signed:
Boni Escamilla III, MD
[facility]
[phone] (mgin)
[2024-05-05] MEDS: LEVOPHED 250 IV (04:40)
[2024-05-05 04:59] LABS: O2 Saturation % 95.6 % (94-98); PCO2 59 mmHg (35-48); PO2 88 mmHg (83-108); Potassium 5.5 mMOL/L (3.5-5.1); Sodium 140 mMOL/L (136-145)
[2024-05-05 05:01] LABS: Hematocrit 21.2 % (39.0-52.0); Hemoglobin 6.5 g/dL (13.0-18.0); Mean Corp Hgb Conc. 30.7 g/dL (33.0-37.0); Mean Corpuscular Hgb 30.2 pg (27.0-31.0); Mean Corpuscular Volume 98.6 fL (80.0-94.0); Mean Platelet Volume 10.8 fL (7.4-10.4); Platelet Count 139 10^3/uL (130-400); Red Blood Cell Count 2.15 10^6/uL (4.70-6.10); Red Cell Dist. Width 14.4 % (11.5-14.5); White Blood Cell Count 16.3 10^3/uL (4.8-10.8)
[2024-05-05 05:03] LABS: Ionized Calcium 1.81 mMOL/L (1.15-1.33)
[2024-05-05 05:04] LABS: O2 Therapy 100; pH < 6.80 (7.35-7.45)
[2024-05-05 05:24] LABS: PT > 100 Sec (11.4-14.6)
[2024-05-05 05:25] LABS: APTT > 200.0 Sec (23.4-35.0); INR > 8.0
--- NOTE | 2024-05-05 05:31 | W.PN.DEATH ---
Pronouncement of
-
Called to see patient to pronounce.
No spontaneous heart tones or respirations noted.
Patient not responsive to verbal stimuli.
Patient is pronounced .
Time of : 04:55
Date of : 05/05/24
Cause of : Cardiogenic and hemorrhagic shock (Inferior STEMI and Right retroperitoneal hemorrhage)
Family Notified: Yes
[2024-05-05] MEDS: CELEXA PO (05:46)
[2024-05-05] MEDS: DEPAKOTE ER (24 HR RELEASE) PO (05:46)
[2024-05-05] MEDS: NEURONTIN PO (05:46)
[2024-05-05] MEDS: DESYREL PO (05:46)
[2024-05-05 05:53] LABS: Blood Urea Nitrogen 18 mg/dl (9-20); Calcium 12.6 mg/dl (8.4-10.2); Carbon Dioxide 5 mmol/L (22-30); Chloride 109 mmol/L (98-107); Estimated Creatinine Clearance 38 ml/min; Glucose 123 mg/dl (70-99); Potassium 5.3 mmol/L (3.5-5.1); Sodium 145 mmol/L (135-145)
--- NOTE | 2024-05-05 06:10 | CHAP ---
Emotional and spiritual support provided to family after Mr. Kothari's . Memories shared, [facility] Commendation performed. Plate Former will not come after someone has , so 'prayer for the in the absence of the repairer recreational vehicle' was performed.
--- NOTE | 2024-05-05 06:51 | PTCARENOTE ---
Pt received at 19:00 with family at bedside. Pt initially A&O x3 and nauseous/vomiting. PRN zofran given by previous RN. Pt continued to c/o nausea, x1 order for compazine received and given. B/L PT pulses present with doppler. Pt with SBP 80s-90s
with MAP 50s-low 60s, x1 500ml bolus LR given and briefly effective with MAP in the 70s. Pt started on bryanna for MAPs sustaining in the 50s, titrated as ordered to max rate. Added levophed, then vaso, then epi, all gtts titrated to max rate with
minimal effect. x2 units PRBCs transfused. Dr. Escamilla made aware of BP and initiation of bryanna gtt, and kept updated by Andrew FONSECA. R groin puncture site initially soft, began to feel firm around site, no ecchymosis noted. CTA abdomen/pelvis
ordered and completed--per results pt taken to vascular OR. Returned to ICU post op, remained on max vasopressor support with BP declining. Family present at bedside when Code 9 initiated, and made decision to stop CPR. Pt pronounced at 04:55.
See B Andrew note for further details.
== END 2024-05-05 04:55 | disposition expired | DRG 252 ==
LOC: ICU 14:48
PROVIDERS: Nurse Practitioner; Nurse Practitioner Primary Care; Surgery Vascular Surgery; ADMITTING PHYSICIAN Surgery; CONSULT PHYSICIAN Internal Medicine Cardiovascular Disease; CONSULT PHYSICIAN Internal Medicine Critical Care Medicine; EMERGENCY PHYSICIAN Emergency Medicine; FAMILY PHYSICIAN Family Medicine
PROC: 047N34Z Dilation of Left Popliteal Artery with Drug-eluting Intraluminal Device, Percutaneous Approach (ICD-10-PCS; 2024-05-04)
PROC: 30233R1 Transfusion of Nonautologous Platelets into Peripheral Vein, Percutaneous Approach (ICD-10-PCS; 2024-05-05)
PROC: 30233N1 Transfusion of Nonautologous Red Blood Cells into Peripheral Vein, Percutaneous Approach (ICD-10-PCS; 2024-05-05)
PROC: 047 Lower Arteries, Dilation (ICD-10-PCS; 2024-05-05)
DX: T82.858A Stenosis of other vascular prosthetic devices, implants and grafts, initial encounter (principal); I21.19 ST elevation (STEMI) myocardial infarction involving other coronary artery of inferior wall; J96.00 Acute respiratory failure, unspecified whether with hypoxia or hypercapnia; K68.3 Retroperitoneal hematoma; I97.618 Postprocedural hemorrhage of a circulatory system organ or structure following other circulatory system procedure; D69.6 Thrombocytopenia, unspecified; E11.22 Type 2 diabetes mellitus with diabetic chronic kidney disease; E11.40 Type 2 diabetes mellitus with diabetic neuropathy, unspecified; E11.51 Type 2 diabetes mellitus with diabetic peripheral angiopathy without gangrene; I70.222 Atherosclerosis of native arteries of extremities with rest pain, left leg; G20.A1 Parkinson's disease without dyskinesia, without mention of fluctuations; I12.9 Hypertensive chronic kidney disease with stage 1 through stage 4 chronic kidney disease, or unspecified chronic kidney disease; N18.9 Chronic kidney disease, unspecified; D64.9 Anemia, unspecified; F10.11 Alcohol abuse, in remission; Z95.820 Peripheral vascular angioplasty status with implants and grafts; R57.0 Cardiogenic shock; R57.8 Other shock; Y71.2 Prosthetic and other implants, materials and accessory cardiovascular devices associated with adverse incidents; E78.00 Pure hypercholesterolemia, unspecified; I25.10 Atherosclerotic heart disease of native coronary artery without angina pectoris; I25.2 Old myocardial infarction; Z95.1 Presence of aortocoronary bypass graft; Z95.5 Presence of coronary angioplasty implant and graft; Z79.01 Long term (current) use of anticoagulants; Z79.84 Long term (current) use of oral hypoglycemic drugs; Z79.899 Other long term (current) drug therapy; Z87.891 Personal history of nicotine dependence; Z82.49 Family history of ischemic heart disease and other diseases of the circulatory system; Z83.3 Family history of diabetes mellitus
CPT/HCPCS: 36246; 37211; 37236; 70450; 74174; 75625; 75635; 75716; 76937; 80048; 80053; 82330; 82805; 82962; 83735; 84100; 84132; 84302; 84484; 85014; 85018; 85025; 85027; 85049; 85384; 85610; 85730; 86850; 86900; 86901; 86920; 93005; 96374; 99291; C1725; C1751; C1769; C1874; C1887; C1894; J2997; P9016; P9045; P9073; Q9967